=== PATIENT | female | born 1990 | race Hispanic/Latino ===

== ENCOUNTER 2016-05-16 10:02 | Inpatient (IN) | payer OTHER ==
[2016-05-16 10:03] VITALS: BMI 25.8
[2016-05-16 10:12] VITALS: O2SAT 99
--- NOTE | 2016-05-16 10:27 | ED PDOC ---
Psych Transfer Clearance - Clearance Statement Clearance Statement: Reviewed vital signs, lab results and transfer papers. Patient clinically stable for psychiatric admission. cleared prior shift by dr donohue
[2016-05-16] MEDS ORDERED: DiphenhydrAMINE 50 mg/ml Inj IM PRN (12:20)
[2016-05-16] MEDS ORDERED: Magnesium Hydroxide Susp 30 ml UD PO PRN (12:20)
[2016-05-16] MEDS ORDERED: Alum-Mag Hydrox-Simethicone Susp (30 mL) PO PRN (12:20)
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
[2016-05-17 08:02] LABS: CHOLESTEROL 154 mg/dL (0-199)
--- NOTE | 2016-05-17 15:01 | PCM.PYCHPN ---
Psychiatric Progress Note - Psychiatric Progress Note Patient seen today, length of contact: discussed with team Patient Chief Complaint: i slept a little better Problems Identified/Issues Discussed: pt is visible on the milieu and attending groups. she reports having a headache. she reports feeling some hot flashes- she is not tremulous. she reports she drinks coffee at home and gets headaches when she stops. she feels a bit more alert now. she is with a brighter affect. Medication Change: Yes (increase the zoloft, seroquel) Medical Record Reviewed: Yes Mental Status Examination - Cognitive Function Orientation: Person, Place, Situation, Time Memory: Intact Attention: WNL Concentration: WNL Association: WNL Fund of Knowledge: WNL - Mood Mood: Depressed, Anxious - Affect Affect: Constricted - Speech Speech: Soft Additional comments: slow, slight delay - Formal Thought Process Formal Thought Process: Other (internally preoccupied) - Suicidal Ideation Suicidal Ideation: No - Homicidal Ideation Homicidal Ideation: No Goal/Treatment Plan - Goal/Treatment Plan Need for Continued Stay: Remain at risks for inpatient hospitalization, Severe functional impairment Progress Toward Problem(s) and Goals/Treatment Plan: major depression, severe with psychosis will continue current treatment- encourage participation in groups and will titrate up medications- zoloft and seroquel will start to slowly taper the ativan disposition planning Estimated Date of D/C: 05/21/16 - Smoking Cessation Smoking Cessation Initiated: Yes
[2016-05-18 09:27] VITALS: RESP 18
--- NOTE | 2016-05-18 14:01 | PCM.PYCHPN ---
Psychiatric Progress Note - Psychiatric Progress Note Patient seen today, length of contact: in treatment team Patient Chief Complaint: i still feel anxious Problems Identified/Issues Discussed: pt is attending groups. she reports feeling anxious. some anxiety related to missing school. affect is brighter. she reports poor sleep- wakes up frequently , restless. she feels less sedated. Medication Change: Yes (incresease seorquel, start remeron) Medical Record Reviewed: Yes Mental Status Examination - Cognitive Function Orientation: Person, Place, Situation, Time Memory: Intact Attention: WNL Concentration: WNL Association: WNL Fund of Knowledge: [facility] Decription of patient's judgement and insights: fair - Mood Mood: Depressed, Anxious - Affect Affect: Constricted Additional comments: psychomotor slowing, some reactive smiles - Speech Speech: Soft - Formal Thought Process Formal Thought Process: Other (internally preoccupied) - Suicidal Ideation Suicidal Ideation: No - Homicidal Ideation Homicidal Ideation: No Goal/Treatment Plan - Goal/Treatment Plan Need for Continued Stay: Remain at risks for inpatient hospitalization, Severe functional impairment Progress Toward Problem(s) and Goals/Treatment Plan: major depression, severe with psychosis will continue current treatment- encourage participation in groups and will titrate up medications- increase seroquel at night start remeron low dose for insomnia will continue ativan disposition planning Estimated Date of D/C: 05/21/16 - Smoking Cessation Smoking Cessation Initiated: Yes
[2016-05-19 09:42] VITALS: TEMP 97.7
--- NOTE | 2016-05-19 13:52 | PCM.PYCHPN ---
Psychiatric Progress Note - Psychiatric Progress Note Patient seen today, length of contact: discussed with team Patient Chief Complaint: i want to go home tomorrow Problems Identified/Issues Discussed: pt is attending groups.reports some improvement in her anxiety. she is still not sleeping well. she wants to go back to school on saturday. Medication Change: No ( ) Medical Record Reviewed: Yes Mental Status Examination - Cognitive Function Orientation: Person, Place, Situation, Time Memory: Intact Attention: WNL Concentration: WNL Association: WNL Fund of Knowledge: [facility] Decription of patient's judgement and insights: fair - Mood Mood: Depressed, Anxious - Affect Affect: Constricted (brighter) - Speech Speech: Soft - Formal Thought Process Formal Thought Process: No Impairment - Suicidal Ideation Suicidal Ideation: No - Homicidal Ideation Homicidal Ideation: No Goal/Treatment Plan - Goal/Treatment Plan Need for Continued Stay: Remain at risks for inpatient hospitalization, Severe functional impairment Progress Toward Problem(s) and Goals/Treatment Plan: major depression, severe with psychosis will continue current treatment [facility] Estimated Date of D/C: 05/21/16
[2016-05-20 09:09] VITALS: BP 121/70; PULSE 72
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
== END 2016-05-20 11:45 | disposition home or self-care (01) | DRG 885 ==
LOC: H.ER 10:02 → UNDOADMIN 10:26 → H.ERHOLD 10:26 → H.PSYCH 11:01 → H.ERHOLD 11:01 → H.PSYCH 12:20
PROVIDERS: ADMIT Psychiatry & Neurology Psychiatry; ATTEND Psychiatry & Neurology Psychiatry
PROC: GZ51ZZZ Individual Psychotherapy, Behavioral (ICD-10-PCS; 2016-05-16)
PROC: GZHZZZZ Group Psychotherapy (ICD-10-PCS; principal; 2016-05-17)
DX: F33.3 Major depressive disorder, recurrent, severe with psychotic symptoms (principal); F43.10 Post-traumatic stress disorder, unspecified; R51 Headache; G47.00 Insomnia, unspecified